=== PATIENT | male | born 1995 | race Caucasian/White ===

== ENCOUNTER → 2016-10-21 | Outpatient (CLI) | payer OTHER ==
[~2016-10-21] MED LIST: ASPI325T45 PO; OXYC-57 PO
== END | disposition home or self-care (01) ==
LOC: C.RDSM 12:38
PROVIDERS: ATTEND Orthopaedic Surgery Sports Medicine
DX: R52 Pain, unspecified (principal)

== ENCOUNTER → 2016-11-02 | Day surgery (SDC) | payer OTHER ==
[2016-10-30 13:56] VITALS: Ht 177.8 cm; Wt 75.0 kg
[~2016-11-02] VITALS: Ht 177.8 cm; Wt 75.0 kg
[~2016-11-02] MED LIST changes: +ATROPINE SULFATE 0.1 MG/ML 5ML SYR IV PRN; +BUPIVACAINE/EPINEPHRINE 0.5% MPF 1:200,000 30 ML VIAL ONE; +CEFAZOLIN 1000MG/55 ML D5W IV SCH; +DEXAMETHASONE SOD INJ 4 MG/ML VIAL ONE; +EpHEDrine SULFATE INJ 50 MG/ML AMP IV PRN; +EpINEphrine INJ 1MG/ML AMP 1 MG/ML AMP ONE; +FENTANYL CITRATE INJ 50 MCG/1 ML 2 ML VIAL IV PRN; +FENTANYL CITRATE INJ 50 MCG/1 ML 2 ML VIAL ONE; +LACTATED RINGER'S 1000ML 1,000 ML IV SCH; +LIDOCAINE HCL 1% 20 ML VIAL ONE; +LIDOCAINE HCL 2% 2 ML VIAL (20MG/ML) ONE; +MIDAZOLAM HCL 1 MG/ML 2ML VIAL ONE; +MoRPHine SULFATE 2 MG/ML CARP IV PRN; +MoRPHine SULFATE 4 MG/ML 1 ML CARP\\VIAL IV PRN; +ONDANSETRON INJ 2 MG/ML 2 ML VIAL IV PRN; +ONDANSETRON INJ 2 MG/ML 2 ML VIAL ONE; +OXYCODONE/ACETAMINOPHEN 5-325 TAB PO PRN; +PROPOFOL IV EMULSION 10 MG/ML 20 ML VIAL IV ONE; +ROPIVACAINE 0.5% 5 MG/ML 30 ML VIAL ONE; +SCOPOLAMINE 1.5 MG TDSY TD ONE
--- NOTE | 2016-11-02 06:48 | History & Physical Bridge - [place] ---
H&P Re-Evaluation Bridge Note: I have examined the patient, reviewed the History & Physical and in the interval since the performance of the History & Physical I have noted the following changes of clinical significance: No changes noted
--- NOTE | 2016-11-02 09:16 | [facility] Post Operative Brief Note ---
Immediate Operative Summary Operative Date Nov 02, 2016. Pre-Operative Diagnosis Right knee patellar dislocation Post-Operative Diagnosis same Procedure(s) Performed 1) Right Knee Arthroscopy, Loose body Removal. 2) Repair Medial Patellofemoral Ligament. 3) Exam Under Anesthesia. Surgeon Dr Viera Yeast Fermentation Attendant Surgeon(s) Germaine Stevenson PA-C (No fellow avail) Estimated Blood Loss 7 ml Findings Avulsion MPFL from patella, small non articulating fracture MPF, loose body. Fluids (cc crystalloids) 1000 Specimens A. Loose body right knee Drains n/a Anesthesia LMA Complication(s) None Disposition Recovery Room / PACU (Stable)
--- NOTE | 2016-11-02 09:18 | [facility] Operative Report ---
Operative Report Operative Date Nov 02, 2016. Pre-Operative Diagnosis Right knee patellar dislocation Post-Operative Diagnosis same + loose body, patellar avulsion fracture. Procedure(s) Performed 1) Right Knee Arthroscopy, Loose body Removal. 2) Repair Medial Patellofemoral Ligament. 3) Exam Under Anesthesia. Surgeon Dr Viera Livestock Exhibitor Surgeon(s) eGrmaine Stevenson PA-C (No fellow avail) Estimated Blood Loss 7 ml Findings The right knee was examined under anesthesia. Range of motion was 0-90. Ligamentous examination exhibited: stable Gilmer, posterior drawer, varus and valgus stress at 0 & 30 degrees. ARTHROSCOPIC FINDINGS: There was a large hemarthrosis, that was evacuated upon entry of the arthroscopic trocar. 1) PATELLOFEMORAL JOINT: The articular cartilage of the Patella had a shear injury to the lateral patellar facet. There was an obvious tear at the patellar attachment of the MPFL with slight retraction. The Trochlea articular cartilage was intact. 2) GUTTERS: Loose body corresponding to the shear injury to the lateral patellar facet was found in the lateral gutter. 3) MEDIAL COMPARTMENT: The articular cartilage of the femur and Tibia was intact. The medial meniscus was intact . 4) ACL/PCL: They were both visualized and probed to be intact. 5) LATERAL COMPARTMENT: The lateral compartment was then entered in a figure-of- four position. The femoral and tibial articular cartilage was normal. The lateral meniscus was normal. After excising the small fracture fragment and repairing the MPFL , the patella tracked centrally along the trochlea noted arthroscopically. Range of motion 0- 120. Fluids (cc crystalloids) 1000 Specimens A. Loose body right knee Drains n/a Anesthesia LMA Complication(s) None Disposition Recovery Room / PACU (Stable) Implants 1.4mm JuggerKnot x 2 (Biomet). Indications This is a 21-year-old male who has clinical and MRI findings consistent with patellar dislocation and a avulsion of the MPFL from the patella. I recommended that a right knee arthroscopy be performed with meniscus repair vs debridement, possible chondroplasty versus microfracture, MPFL repair. The patient understands the risks of surgery, which include but not limited to: bleeding, infection, re-operation, damage to nerves and arteries, continued knee pain, progression of OA, DVT, and a 2-5% risk of becoming worse after surgery. The patient understands all of these instructions and explanations, all of his questions have been satisfactorily addressed and the patient has elected to proceed. Informed consent was signed. Description of Procedure The patient was taken to the Operating Room and placed in the supine position after general anesthetic was administered. My initials and a multidisciplinary time-out were used to identify the right leg as the correct operative limb. Prior to the incision, 1 gram of intravenous Ancef was given. The right knee was then injected with 20cc of a 50:50 mix of 1% Lidocaine plain and 0.5% Bupivacaine with epinephrine in a sterile fashion using the superolateral portal. The right leg was then prepped and draped in a standard sterile fashion. The anterolateral, anteromedial, and superolateral portals and the planned medial incision adjacent to the patella were injected with the 50:50 mixture noted above, for a total of 10cc, in the standard fashion. An anterolateral arthroscopic portal was established with an 11-blade. Next, the arthroscope was introduced into the knee. A diagnostic arthroscopy commenced and both the superolateral and anteromedial portals were established under direct visualization using a spinal needle followed by an 11 blade in the standard fashion. The above findings were observed during the diagnostic arthroscopy. The hematoma and frayed edges of the MPFL were debrided as they were encounter with mechanical shaver. The loose body was removed as it was encountered with mechanical shaver. The patella appeared to be tracking laterally. The knee was copiously irrigated. The arthroscopic instruments were then removed and our attention was drawn to the medial incision. A small 4 cm incision medial to the patella was created with a scalpel and a medial parapatellar arthrotomy was made. The small fracture fragment from the medial patellar aspect was identified and in the inferior aspect of the patella, there was no articular cartilage. It was excised. The medial aspect of the patella was prepared with Porfirio and curettes. Two 1.4 mm JuggerKnot anchors were then placed in the patella, one along the superior aspect and one approximately 1 cm distal to the first. The knee was flexed to 30-40 with the patella reduced in the trochlea to gauge the proper tensioning on the MPFL and using one strand from each anchor which were passed in a locking fashion into together through the MPFL. The other 2 strands from the anchors were passed simply through the MPFL and used to reduce the MPF to the patella and tied together. These were then used in a baseball stitch fashion to over sew the MPFL to the patella. 0 Vicryl was used to close the remaining arthrotomy. 3-0 Vicryl's were used to close the subcutaneous layer. The skin of the medial incision was closed in a running subcuticular fashion. Steri-Strips were placed over top. The portals were closed with 3-0 Prolene in a standard fashion. The wound was dressed with Xeroform gauze, sterile gauze, ABDs, sterile Webril, and a foot to thigh Antoni bandage. The patient was then transferred to the Recovery Room in stable condition. The sponge and needle counts were correct. Post-op Instructions: The patient will be WBAT with the brace locked in extension. The patient may remove the operative dressing on Post-Op Day #2 and apply Band-Aids to the wounds. The patient may shower in 72 hours and is to wear the LAN for 2 weeks on the operative limb. The patient is to use the pain medicine as needed and take the ASA for 2 weeks. The patient was also given a handout for home quad strengthening and seated self-assisted ROM exercises, which they may begin tomorrow. The patient was given a prescription for PT and is scheduled for an appointment later this week. The patient is to follow up with me in 10-15 days. I attest to the content of the Intraoperative Record and any orders documented therein. Any exceptions are noted below.
--- NOTE | 2016-11-02 09:36 | [facility] Operative Report ---
Operative Report Operative Date Nov 02, 2016. Pre-Operative Diagnosis Right knee patellar dislocation Post-Operative Diagnosis same + loose body, patellar avulsion fracture. Procedure(s) Performed 1) Right Knee Arthroscopy, Loose body Removal. 2) Repair Medial Patellofemoral Ligament. 3) Exam Under Anesthesia. Surgeon Dr Viera Tobacco Packer Surgeon(s) Germaine Stevenson PA-C (No fellow avail) Estimated Blood Loss 7 ml Findings same Fluids (cc crystalloids) 1000 Specimens A. Loose body right knee Drains none Anesthesia general Complication(s) None Disposition Recovery Room / PACU Implants see Dr. Viera's note for detail Indications sustained injury to right knee, MRI obtained, surgery recommended, consents signed Description of Procedure taekn to the OR, prepped and draped, I was present the entire case, please see Dr. Viera's op note for further detail I attest to the content of the Intraoperative Record and any orders documented therein. Any exceptions are noted below.
--- NOTE | 2016-11-02 09:39 | Discharge Instructions-SurgCtr ---
Discharge Instructions Visit Reason for Visit: Right Knee Patellar Dislocation Discharge Discharge Diagnosis / Problem: s/p right knee arthroscopy, loose body removal, open repair MPFL Discharge Goals Goal(s): Decrease discomfort, Improve function, Increase independence Activity Recommendations Activity Limitations: as noted below Lifting Limitations: none Exercise/Sports Limitations: none May Resume Sexual Activity: when tolerated Shower/Bathe: keep incision dry Driving or Machine Use: until cleared by Dr. Viera Weightbearing Status: Right non-weightbearing keep brace on and locked in full extension Anesthesia . Post Anesthesia Instructions: If you have had General Anesthesia or IV Sedation: * Do not drive today. * Resume driving when surgeon permits. * Do not make important decisions or sign legal documents today. * Call surgeon for: 1. Temperature elevations greater than 101 degrees F. 2. Uncontrollable pain. 3. Excessive bleeding. 4. Persistent nausea and vomiting. 5. Medication intolerance (nausea, vomiting or rash). * For nausea and vomiting use only clear liquids such as: tea, soda, bouillon until nausea subsides, then gradually increase diet as tolerated. * If you have any concerns or questions, call your surgeon's office. If physician is unavailable and it is an emergency, call 911 or go to the nearest emergency room. . Instructions / Follow-Up Instructions / Follow-Up DIET: * Resume previous diet. MEDICATIONS: * Please take your prescriptions as instructed at your pre-op appointment and/ or see medication discharge instructions listed above. * If concerns develop, call your physician's office at . SPECIAL CARE INSTRUCTIONS: * Ice/Elevate as instructed. * Keep dressing clean, dry, intact. * Your surgical extremity may be discolored due to prepping agents used on the skin. A bluish-green tint is a normal variant and should not cause alarm. Call your doctor at [phone] if: * Temperature above 101 degrees * Pain not relieved by pain medicine ordered * There is increased drainage or redness from any incision * You have any unanswered questions, problems or concerns. FOLLOW UP VISIT: * If not already scheduled, please call the office at to schedule a follow-up appointment. Diet Recommendations Home Diet: resume previous diet Procedures Procedures Performed: 1) Right Knee Arthroscopy, Loose body Removal. 2) Repair Medial Patellofemoral Ligament. 3) Exam Under Anesthesia. Pending Studies Studies pending at discharge: no Medical Emergencies . Who to Call and When: Medical Emergencies: If at any time you feel your situation is an emergency, please call 911 immediately. . Non-Emergent Contact Non-Emergency issues call your: Primary Care Provider . . "Provider Documentation" section prepared by Jose A Stevenson. [place] Drug Monitoring Program Search Results: no issues identified
[2016-11-02 10:47] VITALS: TEMP 37.4
--- NOTE | 2016-11-02 11:01 | Anesthesia Progress Nt - [facility] ---
Anesthesia Post Op Note Date & Time Nov 02, 2016 at 11:00 Vital Signs Pain Intensity: 4 Vital Signs Past 12 Hours Date Time Temp Pulse Resp B/P Pulse Ox O2 Delivery O2 Flow Rate FiO2 11/02/16 10:47 37.4 92 16 148/89 100 Room Air 11/02/16 10:25 37.2 11/02/16 10:23 76 7 11/02/16 10:23 70 7 153/97 96 11/02/16 10:18 79 13 158/94 100 11/02/16 10:18 83 13 11/02/16 10:13 81 10 11/02/16 10:13 81 10 150/94 100 11/02/16 10:11 Room Air 11/02/16 10:08 60 14 11/02/16 10:08 60 14 163/94 100 11/02/16 10:04 146/107 11/02/16 10:03 61 10 11/02/16 10:03 65 10 100 11/02/16 09:58 87 12 150/111 100 11/02/16 09:58 87 12 11/02/16 09:53 88 7 11/02/16 09:53 88 7 165/99 100 11/02/16 09:48 99 14 139/102 100 11/02/16 09:48 99 14 11/02/16 09:44 150/99 11/02/16 09:43 104 16 11/02/16 09:43 16 11/02/16 09:38 103 19 154/95 100 11/02/16 09:38 103 19 11/02/16 09:35 37.4 111 14 143/92 100 Diffusion Mask 6 11/02/16 06:30 36.7 66 16 126/58 95 Room Air Notes Mental Status: alert / awake / arousable, participated in evaluation Pt Amnestic to Procedure: Yes Nausea / Vomiting: adequately controlled Pain: adequately controlled Airway Patency, RR, SpO2: stable & adequate BP & HR: stable & adequate Hydration State: stable & adequate Anesthetic Complications: no major complications apparent
[2016-11-02 11:24] VITALS: BP 143/84; PULSE 55; O2SAT 100
== END | disposition home or self-care (01) ==
LOC: X.SURG 06:18
PROVIDERS: ATTEND Orthopaedic Surgery Sports Medicine
DX: S82.091A Other fracture of right patella, initial encounter for closed fracture (principal); S83.004A Unspecified dislocation of right patella, initial encounter; M23.41 Loose body in knee, right knee; M25.561 Pain in right knee; W00.0XXA Fall on same level due to ice and snow, initial encounter; Y92.89 Other specified places as the place of occurrence of the external cause; Y93.01 Activity, walking, marching and hiking